=== PATIENT | male | born 1980 | race Native Hawaiian/Other Pacific Islander ===

== ENCOUNTER 2025-03-30 09:15 | Emergency (ER) | payer MEDICAID, SELFPAY ==
--- NOTE | 2025-03-30 09:21 | EKG_ITS ---
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
[2025-03-30 09:26] VITALS: BP 132/87; PULSE 79; RESP 16; TEMP 36.9; O2SAT 97
--- NOTE | 2025-03-30 09:29 | XR_ITS ---
Examination: CT brain head without contrast. 2-D sagittal coronal reconstructions Date and time of exam:March 30, 2025, 0936 hours INDICATIONS: Generalized head pain beginning this morning CTDI: vol (mGy):50.9 DLP: (mGycm):1081 Technique: Multiple CT axial sections of the brain have been obtained, 5 mm slice thickness. Contrast has not been administered. 2-D sagittal, coronal reconstructions have been obtained Low dose protocols were performed. One or more of the following dose reduction techniques were used; automated exposure control, adjustment of the mA and/or KV according to patient size, use of iterative reconstruction technique. Findings: No significant ventricular enlargement. Intra-axial or extra-axial hemorrhage density is not seen. No mass effect or midline shift Basal cisterns are not remarkable. Fourth ventricle is midline. Cranial vault intact. Impression: Negative for acute hemorrhage, mass effect or midline shift Mild chronic ethmoid frontal sinusitis Advise clinical correlation follow-up accordingly
--- NOTE | 2025-03-30 09:29 | XR_ITS ---
Examination: PA lateral chest 2 views TECHNIQUE: Upright PA lateral chest 2 views Date and time: March 30, 2025, 10:19 AM INDICATIONS: Chest pain today. FINDINGS: Normal heart size. Lungs are clear. The osseous structures are intact IMPRESSION: No active disease
--- NOTE | 2025-03-30 09:29 | PD.EDRME ---
Rapid Medical Screening Exam RME Arrival date/time: 03/30/25 09:15 44-year-old male presents to the Emergency Department today for complaints of headache and chest pain ongoing since yesterday Chief Complaint: Chest Pain Vital signs: Vital Signs Temperature 98.4 F 03/30/25 09:26 Pulse Rate 79 03/30/25 09:26 Respiratory Rate 16 03/30/25 09:26 Blood Pressure 132/87 H 03/30/25 09:26 Pulse Oximetry (%) 97 03/30/25 09:26 Oxygen Delivery Method Room Air 03/30/25 09:26
[2025-03-30 10:15] LABS: Basophils # (Auto) 0.0 Thou/mm3 (0.0-0.2); Basophils % (Auto) 1 % (0-2.5); Eosinophils # (Auto) 0.1 Thou/mm3 (0.0-0.5); Eosinophils % (Auto) 1 % (0-10); Hematocrit 45.9 % (41.0-53.0); Hemoglobin 15.4 g/dL (13.5-16.0); Immature Granulocytes Auto 0.04 Thou/mm3 (0.00-0.00); Lymphocytes # (Auto) 2.8 Thou/mm3 (1.0-4.8); Lymphocytes % (Auto) 45 % (10-50); Mean Corpuscular HGB Conc 33.6 g/dl (31.0-37.0); Mean Corpuscular Hemoglobin 29.2 pg (25.0-35.0); Mean Corpuscular Volume 87 fL (80-100); Monocytes # (Auto) 0.6 Thou/mm3 (0.0-0.8); Monocytes % (Auto) 9 % (0-12); Neutrophils # (Auto) 2.7 Thou/mm3 (1.8-7.7); Neutrophils % (Auto) 44 % (37-80); Nucleated Red Blood Cell # 0.00 Thou/mm3 (0.00-0.00); Nucleated Red Blood Cell % 0 /100 WBC (0); Platelet Count 331 Thou/mm3 (140-440); RDW Standard Deviation 40.4 fL (35.1-43.9); Red Blood Count 5.27 Miln/mm3 (4.50-5.90); White Blood Count 6.2 Thou/mm3 (3.8-10.6)
[2025-03-30 10:30] LABS: INR 1.0 (0.9-1.3); Partial Thromboplastin Time 26.9 Seconds (22.0-36.0); Prothrombin Time 10.8 Seconds (9.0-12.2)
[2025-03-30 10:31] LABS: Alanine Aminotransferase 45 U/L (10-49); Albumin, Serum 4.7 gm/dL (3.5-5.0); Albumin/Globulin Ratio 1.9 (1.2-2.2); Alkaline Phosphatase 65 U/L (46-116); Anion Gap 7 (7-16); Aspartate Amino Transferase 31 U/L (0-34); B-Type Natriuretic Peptide < 20 pg/mL (0-100); BUN/Creatinine Ratio 11 Ratio (12-20); Bilirubin,Total 0.5 mg/dL (0.3-1.2); Blood Urea Nitrogen 11 mg/dL (9-23); Calcium 9.9 mg/dL (8.3-10.6); Calcium (Corrected) 9.9 mg/dL (8.5-10.1); Carbon Dioxide 30.6 mMol/L (20.0-31.0); Chloride 102 mMol/L (98-107); Creatinine (Component) 1.0 mg/dL (0.6-1.3); Estimated Creatinine Clearance 95.1 mL/min (>60); Globulin 2.5 gm/dL (2.3-3.5); Glucose 109 mg/dL (74-106); Osmolality,Calculated 279 (275-295); Potassium 4.4 mMol/L (3.4-5.1); Sodium 140 mMol/L (136-145); Total Protein 7.2 gm/dL (5.7-8.2); Troponin I < 0.002 ng/mL (0.0-0.045); eGFR > 60 See Note
--- NOTE | 2025-03-30 12:43 | PD.EDCHEST ---
ED Chest Pain RME/HPI General Chief Complaint: Chest Pain Stated Complaint: CHEST PAIN SINCE YESTERDAY, BP 154/116 Time Seen by Provider: 03/30/25 12:23 Arrival date/time: 03/30/25 09:15 RME / HPI RME / HPI narrative: 44-year-old male patient with significant history of hypertension diabetes mellitus, gout, came in for evaluation regarding multiple complaints. Patient has been having elevated blood pressure, headache, chest pain, has been ongoing for several days getting worse yesterday. Chest pain is described as dull ache, severity mild radiating to the left arm. Patient also complained of headache, described as dull ache severity mild. Patient ran out of his diabetic medication, allopurinol, and not taking blood pressure medication. Patient just moved to [place] recently and still looking for a PCP. Asking if I can give him a prescription for metformin allopurinol and blood pressure medication. Related Data Previous Rx's ?Medication ?Instructions ?Recorded allopurinol 100 mg tablet 100 mg PO BID #60 tabs 03/30/25 lisinopril 10 mg tablet 10 mg PO QDAY #30 tabs 03/30/25 metformin 500 mg tablet 500 mg PO BID #60 tabs 03/30/25 Allergies Allergy/AdvReac Type Severity Reaction Status Date / Time No Known Allergies Allergy Verified 03/30/25 09:19 Review of Systems Review of Systems Narrative Review of Systems: Review of system reviewed and within normal limits except mentioned in HPI ED Exam Narrative Physical exam: VITAL SIGNS: Reviewed. GENERAL APPEARANCE: Alert and interactive, follows commands, no acute distress, HEAD AND FACE: Non-traumatic. ENT: PERRL, pink conjunctivitis, eyelid no trauma, Mucous membrane moist. NECK: Supple, nontender, no nuchal rigidity. CHEST: No tenderness, no crepitus, no paradoxical movement, no retractions. LUNGS: Clear, well ventilated, symmetric, no rales, no wheezing, no ronchi, no stridor, good breath sounds bilaterally. HEART: Regular rate, regular rhythm, no murmur, no gallops. ABDOMEN: Soft, positive bowel sounds, nondistended, no guarding, nontender, no rebound, no masses, RECTAL: Deferred. GENITAL: Deferred. NEUROLOGICAL: Gross motor function intact sensory function intact, Appropriate for age. MUSCULOSKELETAL: low back nontender, full range of motion. EXTREMITIES: Nontender, full range of motion. SKIN: Color pink, dry, no rash, no lacerations, no abrasions, no contusions. LYMPHATICS: Deferred. Course Quality Measures none Orders Category Date Time Status Certification Engineer NOW Care 03/30/25 09:29 Active EKG (ED ONLY) *Do not use* NOW Care 03/30/25 09:[address] head/brain wo con Stat Exams 03/30/25 09:29 Completed EKG (ED Only) Stat Exams 03/30/25 09:21 Draft XR chest 2V Stat Exams 03/30/25 09:29 Completed B-Type Natriuretic Peptide Stat Lab 03/30/25 10:01 Completed CBC Stat Lab 03/30/25 10:01 Completed Comprehensive Metabolic Panel Stat Lab 03/30/25 10:01 Completed Partial Thromboplastin Time Stat Lab 03/30/25 10:01 Completed Prothrombin Time with INR Stat Lab 03/30/25 10:01 Completed Troponin I Stat Lab 03/30/25 10:01 Completed Vital Signs Vital signs: Vital Signs Temperature 98.4 F 03/30/25 09:26 Pulse Rate 79 03/30/25 09:26 Respiratory Rate 16 03/30/25 09:26 Blood Pressure 132/87 H 03/30/25 09:26 Pulse Oximetry (%) 97 03/30/25 09:26 Oxygen Delivery Method Room Air 03/30/25 09:26 Chest Pain MDM Narrative MDM Narrative:: 44-year-old male patient with significant history of hypertension diabetes mellitus, gout, came in for evaluation regarding multiple complaints. Patient has been having elevated blood pressure, headache, chest pain, has been ongoing for several days getting worse yesterday. Chest pain is described as dull ache, severity mild radiating to the left arm. Patient also complained of headache, described as dull ache severity mild. Patient ran out of his diabetic medication, allopurinol, and not taking blood pressure medication. Patient just moved to [place] recently and still looking for a PCP. Asking if I can give him a prescription for metformin allopurinol and blood pressure medication. Patient's workup today came back with no metabolic and pathologic abnormality, troponin is normal. Patient's CT scan of the head came back unremarkable. Chest x-ray also came back unremarkable. EKG showed normal sinus rhythm, ventricular rate of 80 bpm, no ST segment elevation or depression noted. Currently patient not having any chest pain. His headache also is totally gone. Patient took 4 tablets of baby aspirin prior to ER visit. Patient was advised to see or look for a new PCP in this locality. Patient is suad do it in few days. I will prescribe this patient home metformin, lisinopril 5 mg daily, and allopurinol. Patient appears nontoxic and hemodynamically stable .Decision to discharge the patient. The patient/family was given an opportunity to ask questions and understood their discharge instructions. Discharge instructions specifically included follow up provider and time frame, current and/or new medications and possible side effects, indications for sooner follow up or return to the emergency department, and the expected course of current diagnosis. Patient reports feeling better as well and giving evidence of significant clinical improvement, I believe patient is now a candidate for discharge. Patient data External records reviewed:: None Clinical information provided by:: patient Social determinants that could affect healthcare access:: none Patient has the following chronic illnesses:: Hypertension diabetes mellitus, gout How is presenting disease/condition affected by chronic disease/condition?: exacerbated by Evaluation data The following diagnostics were reviewed and interpreted by me:: lab results, radiology exam(s) and EKG tracing(s) Lab and/or radiology exams considered but not ordered:: None Interpretation Summary: See results MDM Medications / Prescriptions Medications or Prescriptions considered but not ordered:: None Medication administrations:: None Consultations Consultation(s) initiated? (list below): No Diagnosis Chest Pain Differential Diagnosis: stable angina, chest pain and other (Refill of medications) Most likely diagnosis given after review of the tests above:: Refill of medications, chest pain, headache Admission Indicated Admission indicated?: not indicated Admission Request Was there a request for admission?: No Disposition Plan Disposition Plan: Discharge Discharge Attestation Discharge Attestation: The patient was given an opportunity to ask questions and understood the discharge instructions. Discharge instructions specifically effects, indications for sooner follow up or return to the emergency department, and the expected course of current diagnosis. Patient condition: Stable Discharge Plan Plan Patient Disposition: HOME (Self Care) Discharge Disposition comment: Stable Prescriptions/Referrals Prescriptions/Med Rec: New metformin 500 mg tablet 500 mg PO BID Qty: 60 0RF allopurinol 100 mg tablet 100 mg PO BID Qty: 60 0RF lisinopril 10 mg tablet 10 mg PO QDAY Qty: 30 0RF Referrals: Anne Medina MD [Primary Care Provider] - In 1 week Problem List Clinical Impression: Medication refill, Headache, Chest pain Patient/Caregiver Discharge Instructions Discharge Activity: activity as tolerated Education Materials: ED Chest Pain, Noncardiac Additional Instructions: Thank you for the opportunity for serving you today. You are stable for discharged . You are advised to: Follow-up with your PCP in 1 to 2 days Return to ED for worsening of symptoms Increase oral fluids Take medication as prescribed Print Language: [place] Stand Alone Forms: Rosa M Award Info., Patient Portal Info Letter PA/PEDIATRIC NURSE PRACTITIONER Supervising Physician PA/PEDIATRIC NURSE PRACTITIONER Supervising Physician: MD Soto
== END 2025-03-30 13:00 | disposition home or self-care (01) ==
PROVIDERS: Nurse Practitioner Primary Care; Emergency Provider Emergency Medicine; PCP Internal Medicine
DX: R07.9 Chest pain, unspecified (principal); Z76.0 Encounter for issue of repeat prescription; R51.9 Headache, unspecified; E11.9 Type 2 diabetes mellitus without complications; I10 Essential (primary) hypertension; M10.9 Gout, unspecified
CPT/HCPCS: 36415; 70450; 71046; 80053; 83880; 84484; 85025; 85610; 85730; 93005; 99284